=== PATIENT | female | born 1990 | race African-American/Black ===

== ENCOUNTER 2018-03-28 18:59 | Emergency (ER) | payer OTHER ==
[~2018-03-28] VITALS: Ht 172.7 cm; Wt 90.7 kg
[2018-03-28] MEDS ORDERED: ADDERAL20 MG ORAL (19:06)
[2018-03-28 19:10] VITALS: BP 137/87
[2018-03-28] MEDS ORDERED: Acetaminophen 500mg (ES) tab ORAL ONE (19:30)
--- NOTE | 2018-03-28 19:35 | Emergency Room Report ---
History of Present Illness General Chief Complaint: Multiple Trauma/Fall Source: Patient Present Illness HPI 27-year-old female patient presents to ER status post fall with multiple complaints of pain. Reports pain in right ankle, left wrist, right hand and right shoulder. Reports she tripped and fell forward. Contrary to triage report did not hit face, did not hit head, no loss of consciousness. Denies vomiting or vision changes. Denies dizziness or syncope prior to fall. Reports mechanical trip and fall. ports bilateral flu shot injury. Reports right-hand dominant. reports bruising on right anterior lower leg where she hit a table. thank you reports pain with ambulation. Denies taking medication for relief of symptoms. Denies fever, chest pain, shortness of breath, abdominal pain. Allergies: Uncoded Allergies: CATS (Allergy, Unknown, 03/28/18) DOGS (Allergy, Unknown, 03/28/18) Patient History Past Medical History: see triage record Last Menstrual Period: beginning of this month Now: No Reviewed Nursing Documentation: PMH: Agreed; PSxH: Agreed Nursing Documentation-PMH Past Medical History: No History, Except For Hx Diabetes: Yes - type 2 Review of Systems All Other Systems: negative except mentioned in HPI Physical Exam Vital Signs Date Time Temp Pulse Resp B/P (MAP) Pulse Ox O2 Delivery O2 Flow Rate FiO2 03/28/18 19:02 98.1 96 18 129/85 100 Room Air Sp02 EP Interpretation: reviewed, normal General Appearance: well appearing, no apparent distress, alert, GCS 15, non- toxic Head: normocephalic, atraumatic Eyes: bilateral eye normal inspection, bilateral eye PERRL ENT: hearing grossly normal, normal pharynx, no angioedema, normal voice, uvula midline, moist mucus membranes Neck: full range of motion Respiratory: lungs clear, normal breath sounds, no rhonchi, no respiratory distress, no accessory muscle use, no wheezing, speaking full sentences Cardiovascular #1: regular rate, rhythm, no edema Cardiovascular #2: 2+ radial (R), 2+ radial (L), 2+ dorsalis pedis (R), 2+ dorsalis pedis (L) Musculoskeletal: back normal, digits/nails normal, gait/station normal, normal range of motion, swelling - right ankle, other - NVI, cap refill < 2seconds; negative syndesmotic squeeze; positive Simon impingement on right shoulder; mild ecchymosis of the distal anterior tibia, no deformity; no wrist deformity bilaterally; negative sulcus sign, no skin tenting of shoulder, tender - right hand middle finger and palm; left wrist snuffbox tenderness; dorsum of midfoot and forefoot of right ankle laterally Neurologic: alert, oriented x3, responsive, motor strength/tone normal, sensory intact Psychiatric: mood/affect normal Medical Decision Making PA Attestation Dr. Sands is my supervising Physician whom patient management has been discussed with. Diagnostic Impression: Primary Impression: Fall from ground level Additional Impressions: Ankle sprain Left wrist sprain Shoulder pain, right Contusion ER Course Pt. presents to the ED c/o wrists, hands, shoulder, ankle pain status post mechanical trip and fall. Ddx considered but are not limited to fracture, sprain, strain, contusion, dislocation. No erythema, no warmth to touch, no fever, nontoxic appearing, low suspicion for septic joint. Soft compartments, no pulselessness, no pallor, no paresthesias, low suspicion for compartment syndrome at this time. Vital signs: are WNL, pt. is afebrile Ordered X-ray and pain medication. ER COURSE Provided with pain medication. physical exam shows contusion on anterior tib-fib, no deformity, no bony depression, fracture unlikely, does not require x-rays tib-fib at this time. apply ice to affected area for pain and swelling, take Tylenol for pain symptoms. An X-ray of the right ankle shows no acute fracture reading. Likely sprain. Darrel wrap and air splint placed. An X-ray of the right shoulder shows no acute fracture per the preliminary reading. May require MRI in the future, follow-up with PCP/Ortho to discuss MRI imaging. An X-ray of the left wrist shows no acute fracture per the preliminary reading. due to snuffbox tenderness, will place patient in thumb spica splint. follow-up with primary care provider/Ortho for repeat imaging as needed to rule out scaphoid fracture. An X-ray of the right hand shows no acute fracture per the preliminary reading. Splint on left wrist and Darrel wrap/air splint on right ankle were checked afterwards by me showing good alignment and support with distal neurovascular functioning intact. Crutches provided. Patient instructed on RICE method: rest, ice, compression, elevation. Patient instructed on rest, ice and heat. Patient instructed to be WBAT Workmen's Compensation paperwork completed. Contact information for orthopedic urgent care provided, follow-up with urgent care if unable to followup with primary care provider and get referral to radiation protection specialist. Followup with primary care provider. Discuss referral to ortho/pain management/ PT as needed. Discuss further imaging with MRI/CT as needed. DISCHARGE: -Rx provided for Tylenol for pain symptoms. Rx provided with lidocaine patch Rx provided for Robaxin At this time pt. is stable for d/c to home. Patient is resting comfortably, in no acute distress, nontoxic appearing, talking without difficulty. Will provide printed patient care instructions, and any necessary prescriptions. Patient instructed to follow with primary care provider in 3 - 5 days and to request further follow-up as needed. Care plan and follow up instructions have been discussed with the patient prior to discharge. Take medications as directed. Patient questions asked and answered. Patient reports understanding and agreement to treatment plan. ER precautions given, patient instructed to return to ER immediately for any new or worsening of symptoms. - Please note that this Emergency Department Report was dictated using MetaChannelsprocessing technician technology software, occasionally this can lead to erroneous entry secondary to interpretation by the dictation equipment. Other X-Ray Diagnostic Results Other X-Ray Diagnostic Results #1: X-Ray ordered: right hand # of Views/Limited Vs Complete: 3 View Indication: Pain EP Interpretation: Yes PA Xray: Interpretation reviewed, by supervising MD, and agrees with findings. Interpretation: no dislocation, no soft tissue swelling, no fractures Impression: No acute disease PA Scribe Text Moy Briggs PA-C Other X-Ray Diagnostic Results #2: X-Ray ordered: left wrist # of Views/Limited Vs Complete: 3 View Indication: Pain EP Interpretation: Yes PA Xray: Interpretation reviewed, by supervising MD, and agrees with findings. Interpretation: no dislocation, no soft tissue swelling, no fractures Impression: No acute disease PA Scribe Text Moy Brigsg PA-C Other X-Ray Diagnostic Results #3: X-Ray ordered: right shoulder # of Views/Limited Vs Complete: 3 View Indication: Pain EP Interpretation: Yes PA Xray: Interpretation reviewed, by supervising MD, and agrees with findings. Interpretation: no dislocation, no soft tissue swelling, no fractures Impression: No acute disease PA Scribe Text Moy Briggs PA-C Other X-Ray Diagnostic Results #4: X-Ray ordered: right ankle # of Views/Limited Vs Complete: 3 View Indication: Pain EP Interpretation: Yes PA Xray: Interpretation reviewed, by supervising MD, and agrees with findings. Interpretation: no dislocation, no soft tissue swelling, no fractures Impression: No acute disease CACHORRO Scribe Giovany Briggs PA-C Last Vital Signs Date Time Temp Pulse Resp B/P (MAP) Pulse Ox O2 Delivery O2 Flow Rate FiO2 03/28/18 19:02 98.1 96 18 129/85 100 Room Air Disposition: HOME, SELF-CARE Condition: Stable Scripts Acetaminophen* (TYLENOL EXTRA STRENGTH*) 500 Mg Tablet 500 MG ORAL Q8H PRN for Prn Headache/Temp > 101, #30 TAB 0 Refills Prov: Scott Briggs 03/28/18 Methocarbamol* (ROBAXIN*) 500 Mg Tablet 500 MG PO TID, #21 TAB 0 Refills Prov: Scott Briggs 03/28/18 Lidocaine (Lidocaine) 1 Each Adh..patch 5 % TP DAILY for 7 Days, #7 PATCH Prov: Scott Briggs 03/28/18 Referrals: NON PHYSICIAN (PCP) Patient Instructions: Ankle Sprain, [id number], Contusion, [id number], Fall Prevention in the Home, [id number], Shoulder Pain, [id number], Wrist Sprain Additional Instructions: Patient instructed to follow up with primary care provider and discuss further referral to orthopedics/physical therapy/pain management as needed. Discuss need for MRI imaging of shoulder and other affected areas. If unable to followup with PCP, followup with orthopedic urgent care in 5-7 days , call to schedule appointment. Patient instructed on RICE method: rest, ice, compression, elevation. Patient instructed to WBAT. Take medications as directed. Patient questions asked and answered. ER precautions given, patient instructed to return to ER immediately for any new or worsening of symptoms. [facility] [address] [facility] [address] [facility], [id number] [email or web address] Scott Briggs Mar 28, 2018 19:35
[2018-03-28] MEDS ORDERED: LIDOCAINE700 M1 TP (20:13)
[2018-03-28] MEDS ORDERED: ROBAXIN500 MG PO (20:13)
[2018-03-28] MEDS ORDERED: TYLENOL EXTRA500 MG ORAL (20:13)
[2018-03-28 20:27] VITALS: BP_SYST 130; BP_SYST 137; BP_DIAS 81; BP_DIAS 87
--- NOTE | 2018-03-29 08:59 | Diagnostic Imaging Report ---
Indication: Pain, status post fall Technique: 3 views of the ] ankle Comparison: none Findings: No acute fractures. No dislocations. The joint spaces are preserved. No radiopaque foreign body Impression: Negative
--- NOTE | 2018-03-29 09:02 | Diagnostic Imaging Report ---
Indication: Pain, status post fall Technique: 3 views of the right shoulder Comparison: none Findings: No acute fractures. No dislocations. The joint spaces are preserved. Impression: Negative
--- NOTE | 2018-03-29 09:04 | Diagnostic Imaging Report ---
Clinical Indication:Pain, status post fall Technique: 3 views of the left wrist Comparison: None Findings: There is ulnar minus variance. Tiny cyst is seen within the lunate. No acute fractures. No dislocations. The joint spaces are preserved. Impression: No acute process
--- NOTE | 2018-03-29 09:06 | Diagnostic Imaging Report ---
Indication: Right hand pain, status post fall Technique: 3 views right hand Comparison: none Findings: No acute fractures. No dislocations. The joint spaces are preserved. Impression: Negative
== END 2018-03-28 20:41 | disposition home or self-care (01) ==
LOC: EMR 19:24
DX: S93.401A Sprain of unspecified ligament of right ankle, initial encounter (principal); S63.502A Unspecified sprain of left wrist, initial encounter; S80.11XA Contusion of right lower leg, initial encounter; M25.511 Pain in right shoulder; W01.190A Fall on same level from slipping, tripping and stumbling with subsequent striking against furniture, initial encounter; Y92.89 Other specified places as the place of occurrence of the external cause; Y99.0 Civilian activity done for income or pay; E11.9 Type 2 diabetes mellitus without complications
CPT/HCPCS: 29125; 99284